=== PATIENT | female | born 1950 | race Caucasian/White ===

== ENCOUNTER → 2018-07-25 | Day surgery (SDC) | payer MEDICARE, BC ==
[2018-07-24 10:29] LABS: BASOPHILS # (AUTO) 0.1 (0.0-0.1); BASOPHILS % 1.1 % (0.0-1.0); EOSINOPHILS # (AUTO) 0.3 (0.0-0.4); HEMOGLOBIN 11.5 g/dL (12.0-16.0); LYMPHOCYTES # (AUTO) 1.4 (1.0-3.2); LYMPHOCYTES % 20.2 % (18.0-39.1); MEAN CORPUSCULAR HEMOGLOBIN 23.5 pg (28-32); MEAN CORPUSCULAR HGB CONC 30.3 g/dL (31-35); MEAN CORPUSCULAR VOLUME 77.6 fL (81-99); MONOCYTES # (AUTO) 0.5 (0.2-0.8); MONOCYTES % 7.4 % (4.4-11.3); NEUTROPHILS # (AUTO) 4.6 (2.1-6.9); NEUTROPHILS % 66.2 % (38.7-80.0); PLATELET COUNT 52 x10e3/uL (140-360); RED CELL DISTRIBUTION WIDTH 14.6 % (11.7-14.4)
[2018-07-24 10:42] LABS: ALBUMIN 3.4 g/dL (3.5-5.0); ANION GAP 12.2 mmol/L (8-16); CALCIUM 9.6 mg/dL (8.4-10.2); CREATININE, SERUM 1.23 mg/dL (0.57-1.11)
[2018-07-24 10:44] LABS: POTASSIUM 5.2 mmol/L (3.5-5.1)
[2018-07-24 10:52] LABS: INR 0.92; PROTHROMBIN TIME 12.9 seconds (11.9-14.5)
[2018-07-24 12:18] LABS: PLATELET ESTIMATE MARKEDLY DECREASED; PLATELET MORPHOLOGY COMMENT MANY LARGE; RBC MORPHOLOGY COMMENT NORMAL
[~2018-07-25] VITALS: Ht 177.8 cm; Wt 104.3 kg
[2018-07-25] VITALS (10 sets, daily range): BP systolic 117–157; BP diastolic 57–87
[~2018-07-25] MED LIST: AMLODIPINE BESYL5 MG PO; ASPIRIN 325 MG TAB ONE; EPTIFIBATIDE 10 ML ONE; FENTANYL CITRATE/PF 100MCG/2 ML INJ ONE; FOSINOPRIL SODI20 M1 PO; GLIMEPIRIDE2 MG PO; HEPARIN SOD/SOD CHLORIDE 2,000 ML ONE; HUMULIN SC; IOPAMIDOL 300MG/ML 100 ML INFUS..BTL IV ONE; IOPAMIDOL 370 MG/ML 200 ML INFUS..BTL INJ ONE; LIDOCAINE HCL 2% LOCAL 20 ML VIAL ONE; METOPROLOL SUCC25 MG PO; MIDAZOLAM HCL 2 MG/2 ML VIAL ONE; PANTOPRAZOLE SO40 MG PO; RANITIDINE HCL300 MG PO; SODIUM CHLORIDE 0.9% 1000ML 1,000 ML ONE; TICAGRELOR 90 MG TABLET ONE; VERAPAMIL HCL 2.5 MG/ML 2 ML VIAL ONE; XARELTO20 MG PO; Z DILTIAZEM PO; Z.0.GLIPIZIDE10 MG PO; Z.0.LEVEMIR 3M100 UN SQ; Z.1.DOXAZOSIN MESYLA PO; Z.1.HUMALOG100 UNIT/ SQ; Z.2.METFORMIN HCL500 PO
--- OUTSIDE RECORDS SUMMARY | 2018-07-25 11:51 | XMS REPORT ---
Author Author [facility] Address Unknown Phone Unavailable Care Team Providers Care [employer] Name Role Phone Unavailable Unavailable Payers Payer Name Policy Type Policy Number Effective Date Expiration Date Problems This patient has no known problems. Allergies, Adverse Reactions, Alerts Allergy Name Allergy Type Status Severity Reaction(s) Onset Date Inactive Date Treating Clinician Comments HYDROCODONE DA Active U 2008-08-22 00:00:00 LEVAQUIN DA Active U 2008-08-22 00:00:00 No Known Contrast Allergies DA Active U 2008-08-22 00:00:00 No Known Food Allergies DA Active U 2008-08-22 00:00:00 No Known Other Allergies DA Active U 2008-08-22 00:00:00 propoxyphene DA Active U 2008-06-20 00:00:00 levofloxacin DA Active U 2008-06-20 00:00:00 Medications This patient has no known medications.
--- NOTE | 2018-07-25 15:07 | NUR ---
1507 Received pt Rm #9 [facility] Lad fix x2 stents. Dr Bah Identifierx2.Back to baseline Orientation.Resp shallow and regular 97% on room air Abdomen soft and non tender. Denies necessity to defecate or urinate. Offered po intake and tolerated well. TR band approach may titrate at 5pm and dc home at 7pm. Site w/o gross signs pain,pallor,pressure or three phases of interphase including what is happening at each phase.dysrhythmia.Abdomen soft and non tenders denies necessity to defecate or urinate. 1700 TR band initiated -2cc balance 13cc in balloon balance remains 11cc no signs of hematoma or bleeding. 1715 TR band -2cc balance 11cc 1730 TR band -2cc balance 8cc 1745 Trband -2cc balance 6cc 1800 TR band -2cc balance 4cc 1815 TR band off no gross signs pain,pallor,pressure or dysrhythmia. Coban dressing in place with wrist splint.Ready for dc. Has DC papers and family and pt aware of importance of f/o care. Iv removed . Site w/o s/s infiltration coban dressing in place.Escorted to car aware of importance f/o care per w/c with [employer] employee.
--- NOTE | 2018-07-25 16:09 | Operative Report ---
DATE OF PROCEDURE: 07/25/2018 SURGEON: Cecilio Bah MD CARDIAC QUANTITATIVE ANALYST PROCEDURE NOTE INDICATION: Coronary artery disease, abnormal stress test with lateral ischemia. PROCEDURES PERFORMED: 1. Left heart catheterization, selective coronary angiography. 2. PTCA and stent placement to the circumflex artery. 3. Deployment of right wrist TR band. COMPLICATIONS: None. RECOMMENDATIONS: Triple anticoagulant therapy for three months, followed by aspirin and Xarelto for life. DESCRIPTION OF PROCEDURE: Access obtained in the right radial artery using ultrasound guidance, 5-Kyrgyz sheath was placed. Diagnostic coronary angiogram revealed patent left main, mild disease in the proximal left and proximal and mid left anterior descending artery. Distal LAD had diffuse 50% to 70% stenosis. This was 1.5 mm vessel. Circumflex was calcified with proximal 90% and mid 70% stenosis. Right coronary artery had mild disease. Right posterolateral and posterior descending arteries had diffuse 50% stenosis. A decision was made to intervene on the circumflex arteries. The patient received intravenous heparin and Integrilin bolus for anticoagulation as well as oral Brilinta and aspirin. The left main was cannulated using an EBU 3.75 5-Kyrgyz guiding catheter. A short wire was advanced across the lesion. Two overlapping 2.75 x 18 mm Resolute Tyson stents were deployed at 14 and 20 atmospheres, mid and proximal circumflex. Excellent result less than 10% residual stenosis, MARIELA-3 flow. No complication. Right wrist sheath and guide removed. TR band applied. The patient discharged home same day following 6 hours of observation. MD VINCE Santiago/MODL /[id number]
--- NOTE | 2018-07-25 18:00 | NUR ---
1800 Dc home no gross sign pain,pallor,pressure or dysrhythmia. Escorted to car per [employer] [facility] employee with family driverper w/c. Aware of importance of f/o and restrictions of care. Denies c/o CP or SOB Tr band site stable. Vs stable. ds/rn
== END | disposition home or self-care (01) ==
LOC: CATH LAB 11:43
PROVIDERS: ATTEND Internal Medicine Interventional Cardiology
DX: I25.118 Atherosclerotic heart disease of native coronary artery with other forms of angina pectoris (principal); I48.0 Paroxysmal atrial fibrillation; I10 Essential (primary) hypertension; R94.39 Abnormal result of other cardiovascular function study; E11.9 Type 2 diabetes mellitus without complications; Z01.812 Encounter for preprocedural laboratory examination; Z79.4 Long term (current) use of insulin; Z79.02 Long term (current) use of antithrombotics/antiplatelets; Z68.32 Body mass index [BMI] 32.0-32.9, adult; Z86.19 Personal history of other infectious and parasitic diseases; Z82.49 Family history of ischemic heart disease and other diseases of the circulatory system
CPT/HCPCS: 93458; C1874; C9600; 36415; 80053; 85025; 85610; 92933; J1327; J2001; J2250; J7030; Q9967

== ENCOUNTER 2018-08-19 15:12 | Inpatient (IN) | payer MEDICARE, BC ==
[~2018-08-19] VITALS: Ht 177.8 cm; Wt 104.3 kg
[~2018-08-19 15:12] MED LIST changes: -ASPIRIN 325 MG TAB ONE; -EPTIFIBATIDE 10 ML ONE; -FENTANYL CITRATE/PF 100MCG/2 ML INJ ONE; -HEPARIN SOD/SOD CHLORIDE 2,000 ML ONE; -IOPAMIDOL 300MG/ML 100 ML INFUS..BTL IV ONE; -IOPAMIDOL 370 MG/ML 200 ML INFUS..BTL INJ ONE; -LIDOCAINE HCL 2% LOCAL 20 ML VIAL ONE; -MIDAZOLAM HCL 2 MG/2 ML VIAL ONE; -SODIUM CHLORIDE 0.9% 1000ML 1,000 ML ONE; -TICAGRELOR 90 MG TABLET ONE; -VERAPAMIL HCL 2.5 MG/ML 2 ML VIAL ONE
[2018-08-19 16:02] LABS: BASOPHILS # (AUTO) 0.1 (0.0-0.1); BASOPHILS % 0.8 % (0.0-1.0); EOSINOPHILS # (AUTO) 0.2 (0.0-0.4); EOSINOPHILS % 3.1 % (0.0-6.0); HEMATOCRIT 33.4 % (34.2-44.1); HEMOGLOBIN 10.2 g/dL (12.0-16.0); LYMPHOCYTES # (AUTO) 1.4 (1.0-3.2); LYMPHOCYTES % 19.8 % (18.0-39.1); MEAN CORPUSCULAR HEMOGLOBIN 23.1 pg (28-32); MEAN CORPUSCULAR HGB CONC 30.5 g/dL (31-35); MEAN CORPUSCULAR VOLUME 75.7 fL (81-99); MONOCYTES # (AUTO) 0.5 (0.2-0.8); MONOCYTES % 7.1 % (4.4-11.3); NEUTROPHILS # (AUTO) 4.9 (2.1-6.9); NEUTROPHILS % 68.2 % (38.7-80.0); RED BLOOD COUNT 4.41 x10e6/uL (3.6-5.1); RED CELL DISTRIBUTION WIDTH 14.5 % (11.7-14.4)
[2018-08-19 16:04] LABS: PLATELET COUNT 48 x10e3/uL (140-360)
[2018-08-19 16:07] LABS: BILIRUBIN,URINE NEGATIVE (NEGATIVE); CLARITY,URINE HAZY (CLEAR); COLOR,URINE YELLOW (YELLOW); KETONES,URINE NEGATIVE (NEGATIVE); LEUKOCYTE ESTERASE ,URINE NEGATIVE (NEGATIVE); NITRITE,URINE NEGATIVE (NEGATIVE); PROTEIN,URINE DIPSTICK NEGATIVE (NEGATIVE); URINE UROBILINOGEN 0.2 mg/dL (0.2 - 1)
--- NOTE | 2018-08-19 16:11 | Diagnostic Imaging Report ---
EXAMINATION: CHEST SINGLE (PORTABLE) INDICATION: ^DIZZY COMPARISON: None FINDINGS: AP view TUBES and LINES: None. LUNGS: Lungs are well inflated. Lungs are clear. There is no evidence of pneumonia or pulmonary edema. PLEURA: No pleural effusion or pneumothorax. HEART AND MEDIASTINUM: The cardiomediastinal silhouette is unremarkable. Mildly prominent right hilar structures. BONES AND SOFT TISSUES: No acute osseous lesion. Soft tissues are unremarkable. UPPER ABDOMEN: No free air under the diaphragm. IMPRESSION: Mildly prominent right hilar structure, which may represent lymphadenopathy versus pulmonary arterial hypertension. Signed by: Dr. Kelby Colunga M.D. on 08/19/2018 4:07 PM
[2018-08-19 16:12] LABS: BACTERIA,URINE FEW /HPF; EPITHELIAL CELLS,URINE FEW /LPF; RBC,URINE 0-5 /HPF (0-5); WBC,URINE (MAN) 0-5 /HPF (0-5)
--- NOTE | 2018-08-19 16:13 | Diagnostic Imaging Report ---
History:Slurred speech, on Plavix Comparison studies: None Technique: Axial images were obtained from the skull base to the vertex. Coronal and sagittal images reconstructed from the axial data. Dose modulation, iterative reconstruction, and/or weight based adjustment of the mA/kV was utilized to reduce the radiation dose to as low as reasonably achievable. Intravenous contrast: None Findings: Scalp/skull: No abnormalities. Extra-axial spaces: No masses. No fluid collections. Brain sulci: Mildly prominent. Ventricles: Mild compensatory dilatation. No hydrocephalus. Parenchyma: Ill-defined, confluent hypodensities in the supratentorial white matter are small vessel ischemic changes. No masses, hemorrhage, acute or chronic cortical vascular insults. 2 5-mm chronic lacunar insults are centered in the posterior putamina and right thalamus. Sellar/suprasellar region: No abnormalities. Craniocervical junction: Patent foramen magnum. No Chiari one malformation. Incidental findings: Atherosclerotic calcifications in the carotid siphons and vertebral arteries.. Impression: No acute abnormalities. Chronic findings: 1. Mild generalized volume loss. 2. Moderate supratentorial white matter small vessel ischemic changes. 3. Focal lacunar insults (putamina and right thalamus) Signed by: Dr. Zeferino Richmond M.D. on 08/19/2018 4:10 PM
[2018-08-19 16:16] LABS: INR 1.02; PROTHROMBIN TIME 13.9 seconds (11.9-14.5)
[2018-08-19 16:17] LABS: PARTIAL THROMBOPLASTIN TIME 30.4 seconds (23.8-35.5)
[2018-08-19 16:27] LABS: ALANINE AMINOTRANSFERASE 20 IU/L (0-55); ALBUMIN 3.7 g/dL (3.5-5.0); ALBUMIN/GLOBULIN RATIO 1.1 (0.8-2.0); ALKALINE PHOSPHATASE 41 IU/L (40-150); ANION GAP 14.1 mmol/L (8-16); BLOOD UREA NITROGEN 20 mg/dL (7-26); BUN/CREATININE RATIO 16 (6-25); CALCIUM 9.6 mg/dL (8.4-10.2); CARBON DIOXIDE 26 mmol/L (22-29); CHLORIDE 106 mmol/L (98-107); CREATINE KINASE 167 IU/L (29-168); CREATININE, SERUM 1.24 mg/dL (0.57-1.11); EST GLOMERULAR FILTRATION RATE 43 ML/MIN (60-); GLUCOSE 87 mg/dL (74-118); MAGNESIUM 1.3 MG/DL (1.3-2.1); PLATELET ESTIMATE MARKEDLY DECREASED; PLATELET MORPHOLOGY COMMENT NORMAL; POTASSIUM 4.1 mmol/L (3.5-5.1); SODIUM 142 mmol/L (136-145)
[2018-08-19] MEDS ORDERED: ONDANSETRON HCL INJ 2MG/ML 2ML 2 MG/ML VIAL IV PRN (18:15)
[2018-08-19] MEDS ORDERED: DEXTROSE 50% SYRINGE 50 ML IV PRN (18:15)
[2018-08-19] MEDS: SODIUM CHLORIDE 0.9% 1000ML 1,000 ML IV SCH (18:40)
[2018-08-19] MEDS: INSULIN LISPRO 100 UNIT/1 ML 3ML VIAL SQ SCH (21:00)
[2018-08-19 21:15] VITALS: BP 177/118
--- NOTE | 2018-08-19 21:20 | NUR ---
RECEIVED PATIENT FROM ER IN STABLE CONDITION, SHOWED NO SIGNS OF DISTRESS, AND THE PATIENT VOICED NO PAIN. IV PATENT AND INTACT, BED IS LOW, SIDE RAILS ARE UP, CALL LIGHT WITHIN EASY REACH, WILL CONTINUE TO MONITOR.
[2018-08-19] MEDS ORDERED: HUMULIN SC SCH (23:00)
[2018-08-20] VITALS (8 sets, daily range): BP systolic 147–196; BP diastolic 67–77
[2018-08-20 04:03] LABS: BASOPHILS # (AUTO) 0.1 (0.0-0.1); BASOPHILS % 0.9 % (0.0-1.0); EOSINOPHILS # (AUTO) 0.2 (0.0-0.4); EOSINOPHILS % 3.4 % (0.0-6.0); HEMATOCRIT 29.4 % (34.2-44.1); HEMOGLOBIN 9.2 g/dL (12.0-16.0); LYMPHOCYTES # (AUTO) 1.4 (1.0-3.2); LYMPHOCYTES % 21.9 % (18.0-39.1); MEAN CORPUSCULAR HEMOGLOBIN 23.5 pg (28-32); MEAN CORPUSCULAR HGB CONC 31.3 g/dL (31-35); MONOCYTES # (AUTO) 0.5 (0.2-0.8); MONOCYTES % 7.4 % (4.4-11.3); NEUTROPHILS # (AUTO) 4.2 (2.1-6.9); NEUTROPHILS % 65.8 % (38.7-80.0); RED BLOOD COUNT 3.92 x10e6/uL (3.6-5.1); RED CELL DISTRIBUTION WIDTH 14.5 % (11.7-14.4)
[2018-08-20 04:07] LABS: PLATELET COUNT 37 x10e3/uL (140-360)
[2018-08-20 04:24] LABS: ALBUMIN 3.2 g/dL (3.5-5.0); ALBUMIN/GLOBULIN RATIO 1.1 (0.8-2.0); ANION GAP 11.2 mmol/L (8-16); CALCIUM 9.9 mg/dL (8.4-10.2); CREATININE, SERUM 1.05 mg/dL (0.57-1.11); POTASSIUM 4.2 mmol/L (3.5-5.1)
--- NOTE | 2018-08-20 04:24 | NUR ---
PAGED DR. BHARDWAJ ON CRITICAL LABS FOR PATIENT, WAITING FOR CALL BACK.
--- NOTE | 2018-08-20 04:31 | NUR ---
RECEIVED CALL BACK FROM DR. BHARDWAJ TO STOP BLOOD THINNER. WILL CONTINUE TO MONITOR PATIENT.
[2018-08-20] MEDS: SODIUM CHLORIDE 0.9% 1000ML 1,000 ML IV SCH ×2 (05:00→13:45)
[2018-08-20 06:39] LABS: CREATINE KINASE MB 3.2 ng/mL (0-5.0)
[2018-08-20] MEDS ORDERED: GLIMEPIRIDE 2 MG TAB PO SCH (07:30)
[2018-08-20] MEDS ORDERED: METFORMIN HCL 500 MG TAB PO SCH (08:00)
[2018-08-20] MEDS: AMLODIPINE BESYLATE 5 MG TAB PO SCH (08:09)
[2018-08-20] MEDS: PANTOPRAZOLE SOD 40 MG TABEC PO SCH (08:09)
[2018-08-20] MEDS: METOPROLOL SUCCINATE 25 MG TAB XL PO SCH (08:10)
[2018-08-20] MEDS: INSULIN LISPRO 100 UNIT/1 ML 3ML VIAL SQ SCH ×4 (08:10→21:14)
[2018-08-20] MEDS ORDERED: ONDANSETRON HCL INJ 2MG/ML 2ML 2 MG/ML VIAL IV PRN (08:15)
[2018-08-20] MEDS ORDERED: ALTACHLORE OS (08:18)
[2018-08-20] MEDS ORDERED: SIMBRINZA OS (08:18)
[2018-08-20] MEDS ORDERED: [UNRECOGNIZED DRUG - OTHER] OS (08:18)
[2018-08-20] MEDS ORDERED: LOTEMAX5 ML OS (08:18)
[2018-08-20 08:36] LABS: CHOL/HDL RATIO 2.5 (3.0-3.6)
[2018-08-20 08:39] LABS: % IRON SATURATION 3 % (15-50); IRON 13 ug/dL (50-170); TOTAL IRON BINDING CAPACITY 458 ug/dL (261-478); TRANSFERRIN 327 mg/dL (180-382)
[2018-08-20] MEDS: SODIUM CHLORIDE OP SCH ×3 (09:00→20:46)
[2018-08-20] MEDS: SIMBRINZA EYE OP SCH ×2 (09:00→17:00)
[2018-08-20] MEDS: EYE OP SCH (09:00)
[2018-08-20] MEDS: LOTEPREDNOL ETABONATE(OPTH) 5 ML BTL OP SCH ×2 (09:00→17:00)
[2018-08-20] MEDS ORDERED: RIVAROXABAN 20 MG TABLET PO SCH (09:00)
[2018-08-20] MEDS ORDERED: CLOPIDOGREL BISULFATE 75 MG TAB PO SCH (09:00)
[2018-08-20 12:57] LABS: CREATINE KINASE 171 IU/L (29-168)
[2018-08-20] MEDS ORDERED: SODIUM CHLORIDE 0.9% 250ML 250 ML IV ONE ×2 (13:30→16:00)
[2018-08-20] MEDS ORDERED: ONDANSETRON HCL 4 MG ORAL DISINTEGRATING TAB PO PRN (13:45)
--- NOTE | 2018-08-20 15:47 | History and Physical ---
REASON FOR ADMISSION: This is a 68-year-old lady with a history of diabetes mellitus, comes in with symptoms of slurry speech and also dizziness. HISTORY OF PRESENT ILLNESS: Ms. Pro is a 68-year-old, charming lady with a history of diabetes mellitus, hypertension, hyperlipidemia, history of recent cataract surgery, and history of recent stent for coronary artery disease, was in usual state of health until the patient came back from work on Tuesday night, noticed that she was slurring her speech and could not understand her words. The patient also had a tremendous amount of dizziness at that time, did not make much of it the next to the patient. Yesterday, the patient continued to have these symptoms of slurred speech and dizziness and came into the emergency room, was admitted for possible TIA. Stroke has been ruled out. PAST MEDICAL HISTORY: History of hypertension, history of hyperlipidemia, history of coronary artery disease, history of atrial fibrillation, history of long-term use of insulin, history of long-term use of anticoagulant too, and recent history of stent. 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 PAST SURGICAL HISTORY: History of recent cataract surgery, history of stent placement, and history of cholecystectomy and knee replacement. MEDICATIONS: She takes include amlodipine 5 mg daily, glimepiride 4 mg twice a day, insulin 48 units at nighttime. Metformin 1000 mg twice a day, metoprolol 25 mg daily, pantoprazole 40 mg daily, ranitidine 300 mg at nighttime, and also Xarelto 20 mg daily. She also takes Plavix 75 mg daily, and Humulin 10 units subcutaneous before each meal. REVIEW OF SYSTEMS: Negative for chest pain. No shortness of breath. No nausea, vomiting, or diarrhea. No constipation. No rectal bleeding. No hematochezia. No hematemesis. No paresthesias, no hyperesthesias. No focal weakness. Positive for right-sided facial weakness from Mosher's palsy. The patient otherwise has no diplopia. No headache and no blurry vision. Positive for slurring of speech as mentioned above. PHYSICAL EXAMINATION: VITAL SIGNS: Temperature is 96.1, pulse of 66, respirations of 18, blood pressure is 196/77. HEENT: Normocephalic atraumatic. Chronic facial droop present. CVS: S1, S2 normal. Positive for ejection systolic murmur. Regular rate and rhythm. ABDOMEN: Nontender, nondistended. EXTREMITIES: No clubbing, no cyanosis and/or no edema. NEUROLOGICAL: No focal neurological changes except for the chronic Mosher's palsy right side. LABORATORY VALUES: The patient's white count is 6.38, hemoglobin of 9.2, hematocrit of 29.4, and platelet count of 48 and down to 37. Chemistry, sodium of 142, potassium 4.1, BUN of 20, creatinine of 1.24, and troponins have been negative x2. Coags are essentially normal. IMAGING STUDIES: Initial brain CT was done, shows mild generalized volume loss. Moderate supratentorial white matter ischemic changes. Focal lacunar insults seen in the right thalamus. ASSESSMENT: 1. Transient ischemic attack/cerebrovascular accident .. 2. History of recent angioplasty with history of coronary artery disease. 3. Diabetes mellitus. 4. Hyperlipidemia. 5. Hypertension. PLAN: 1. Plan is to consult Neurology. The patient cannot undergo MRI secondary to the recent angioplasty. Need six weeks of waiting. 2. Thrombocytopenia. The patient continues to drop her platelets in lieu of three antiplatelets on board. 3. Coronary artery disease. We will consult Dr. Jaramillo. 4. History of diabetes mellitus. Stronger control of diabetes recommended and A1c will be checked and a lipid panel will be checked too. Further recommendation per clinical course. We will keep the patient in-house. Carotid Doppler will be done. Complete echocardiogram repeated and also a Neurology consult as mentioned above. MD IMTIAZ Sevilla/MODL /[id number]
--- NOTE | 2018-08-20 16:33 | Consultation ---
DATE OF CONSULTATION: Cardiology Consultation HISTORY OF PRESENT ILLNESS: This is a 68-year-old woman with a history of paroxysmal atrial fibrillation, coronary artery disease status post recent percutaneous coronary intervention on July 25, and thrombocytopenia, who presented to the emergency department with worsening slurring of her speech, fatigue, dizziness, and lightheadedness. The symptoms started a day prior to admission. It became more severe leading her son to take her to the emergency department. She has no chest pain, shortness of breath, or palpitations. She is currently still taking her Plavix, aspirin, and Xarelto. Her symptoms have been improving throughout her stay. REVIEW OF SYSTEMS: A 12-point review of system was conducted, is negative, otherwise as stated above in the HPI. 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 PAST SURGICAL HISTORY: Percutaneous coronary intervention. PAST FAMILY HISTORY: No premature coronary artery disease or sudden cardiac . SOCIAL HISTORY: No illicit drugs, alcohol, or tobacco use. ALLERGIES: HYDROCODONE, LEVOFLOXACIN. MEDICATIONS: See medication reconciliation form. PHYSICAL EXAMINATION: VITAL SIGNS: She is afebrile, heart rate is 56, respirations are 18, blood pressure is 171/74, and oxygen saturation 98% on room air. GENERAL: Well appearing, well built, in no apparent distress, alert and oriented x3. HEAD: Normocephalic, atraumatic. EYES: Extraocular movements are intact. Conjunctiva is clear. NECK: No JVD. No bruits. CARDIOVASCULAR: Regular rate and rhythm. No murmurs. LUNGS: Clear to auscultation. ABDOMEN: Soft, nontender, nondistended. EXTREMITIES: No clubbing or cyanosis with trace edema. VASCULAR: 2+ pulses. NEUROLOGIC: Dysarthria. LABORATORY DATA: A 12-lead electrocardiogram showed normal sinus rhythm. Laboratory data reveals platelet count of 37, creatinine 1.05, negative troponins. CT of the head shows focal lacunar insults. Carotid Doppler showed mild plaque in the internal carotid arteries with increased velocities in the left external carotid artery. IMPRESSION: 1. Cerebrovascular accident. 2. Paroxysmal atrial fibrillation. 3. Coronary artery disease status post recent percutaneous coronary intervention. 4. Hypertension. 5. Hyperlipidemia. 6. Diabetes mellitus. 7. Thrombocytopenia. RECOMMENDATIONS: The patient likely with a subacute stroke. Continue clopidogrel given recent stent, however, use caution with her significant thrombocytopenia. I would increase her atorvastatin to at least moderate to high dosage for ongoing cardiovascular medical problems. Restart her home medications for antihypertensive effect. We will continue to follow along closely with you. DO PAT Shaw/KRIS /[id number]
[2018-08-20] MEDS ORDERED: SODIUM CHLORIDE 0.9% 100 ML 100 ML ONE (17:36)
[2018-08-20] MEDS ORDERED: IOPAMIDOL 370 MG/ML 200 ML INFUS..BTL INJ ONE (17:36)
--- NOTE | 2018-08-20 18:52 | Diagnostic Imaging Report ---
CTA NECK, CTA BRAIN HISTORY: Dizziness, dysarthria COMPARISON: Head CT 08/19/2018 TECHNIQUE: CTA of the head and neck was performed with intravenous iodine based contrast. Coronal, sagittal, 3-D, and oblique maximum intensity projection reformations were created. One or more of the following dose reduction techniques were used: Automated exposure control, adjustment of the mA and/or kV according to patient size, and/or utilization of iterative reconstruction technique. DISCUSSION: If present, any cervical carotid stenosis will be measured as a percentage relative to the [place] artery distal to the stenosis (NASCET). CERVICAL CTA: Aberrant right subclavian artery is present, a normal variant. There are mild calcifications in the aortic arch and proximal great vessels without significant stenosis. Right Carotid: Mild to moderate calcified plaque at the right carotid bulb does not cause significant stenosis. Mild calcified plaque in the upper right cervical internal carotid artery also does not cause significant stenosis. The right internal carotid artery has a retropharyngeal course. Left Carotid: Moderate left carotid bulb calcified plaque does not cause significant stenosis. The upper left cervical internal carotid artery is tortuous. Right vertebral artery: Hypoplastic, but otherwise patent and without abnormality. Left vertebral artery: A few scattered mild calcified plaques in the V1, V2, and V3 segments do not cause significant stenosis. Otherwise, patent and without abnormality. INTRACRANIAL CTA: Carotid arteries: Bilateral carotid siphon calcifications are present without significant stenosis. No abnormalities in the A1 or M1 segments. Suspected, at least moderate focal stenoses in the bilateral anterior cerebral artery A2 segments. Vertebrobasilar Circulation: Right vertebral artery: The right vertebral artery is hypoplastic. Mild calcified plaque in the V4 segment does not cause significant stenosis. Left vertebral artery: Mild calcified plaque in the V4 segment does not cause significant stenosis. Basilar artery: Patent, no abnormalities. Posterior cerebral arteries: Patent, no abnormalities. Normal Variants: ACom: Patent. PComs: Patent on the left. Not clearly visualized on the right. Vertebral arteries: Left dominant. The major dural venous sinuses are grossly patent. Additional findings: Both ocular lenses are thinned. There are mild to moderate degenerative changes throughout the spine. IMPRESSION: 1. Suspected, at least moderate focal stenoses in the bilateral anterior cerebral artery A2 segments. 2. Bilateral carotid siphon calcifications without significant stenosis. 3. Mild to moderate right and moderate left carotid bulb calcified plaque without significant stenosis. 4. Scattered mild bilateral vertebral artery calcified plaques without significant stenosis. The right vertebral artery is hypoplastic. Signed by: Dr. Domingo Jefferson M.D. on 08/20/2018 6:49 PM
--- NOTE | 2018-08-20 18:59 | Consultation ---
DATE OF CONSULTATION: 08/20/2018 Neurology Consult Note HISTORY OF PRESENT ILLNESS: Ms. Pro is a 68-year-old right-hand dominant woman with multiple vascular risk factors, admitted to [facility] on August 19, 2018 for a transient ischemic attack or stroke. At approximately noon on the day prior to admission, Ms. Pro experienced the sudden onset of dizziness, which is further described as lightheadedness as well as dysarthria and expressive aphasia. Ms. Pro endorses poor balance and impairment of gait as well, however, she attributes this to the dizziness. The patient does not report a visual field cut or other disturbance, worsening facial droop, hemiparesis, hemihypesthesia, or confusion associated with the above symptoms. The above described symptoms persisted for more than 24 hours. On the afternoon of August 19, 2018, Ms. Pro was persuaded by family members to present to the emergency center at [facility] for further evaluation. Upon arrival in the emergency center, the patient was afebrile with a blood pressure of 199/80 mmHg and a pulse of 65 beats per minute. Her neurological examination was documented as being significant for dysarthria as well as right facial weakness. A CT of the brain without contrast was performed. This study did not reveal evidence of recent large territorial ischemia or hemorrhage. Focal lacunar insults were seen in the bilateral putamen and right thalamus. Ms. Pro was then admitted to [facility] under observation status for further evaluation and treatment of her symptoms. Ms. Pro reports her symptoms resolved while she is in the emergency center. While the symptoms did last for more than 24 hours, she reports being asymptomatic at present. Ms. Pro does not report a prior history of transient ischemic attack or stroke. She has not experienced similar symptoms previously. Ms. Pro takes Xarelto daily for anticoagulation for atrial fibrillation. She does not report missing any recent doses of the medication. Ms. Pro is taking aspirin and Plavix by mouth daily due to recent cardiac stent placement. REVIEW OF SYSTEMS: Dysarthria, expressive aphasia, impairment of balance and gait, dizziness which is further described as lightheadedness. Otherwise, a 12-point review of systems is negative. PAST MEDICAL HISTORY: Hypertension, diabetes mellitus, coronary artery disease, atrial fibrillation, chronic kidney disease stage 1, gastroesophageal reflux disease. PAST SURGICAL HISTORY: Bilateral cataract removal, cardiac catheterization with 2 stents placed, tonsillectomy, cholecystectomy, right knee replacement. PAST HOSPITALIZATIONS: Surgeries/procedures as listed. FAMILY MEDICAL HISTORY: The patient's paternal and maternal grandparents are . Their medical histories are unknown. The patient's father is . He had a history of hypertension as well as an irregular heart rate. The patient's mother is from complications of Alzheimer disease. She had hypertension as well. Ms. Pro had 1 sibling, a brother, who is . His only known medical history was hypertension. Ms. Pro had one child, a daughter, who is from complications of diabetes mellitus type 1. SOCIAL HISTORY: Ms. Pro is . She works as a [place] at a [employer]. The patient does not report current or prior tobacco or recreational drug use. She endorses occasional alcohol use. HOME MEDICATIONS: Aspirin 81 mg by mouth daily, Plavix 75 mg by mouth daily, Xarelto 20 mg by mouth daily, amlodipine 5 mg by mouth daily, metoprolol 25 mg by mouth daily, atorvastatin 10 mg by mouth daily, glimepiride 4 mg by mouth twice daily, insulin detemir 48 units subcutaneously at bedtime daily, metformin 1000 mg by mouth twice daily, Protonix 40 mg by mouth daily, ranitidine 300 mg by mouth at bedtime daily, Humulin, Simbrinza. HOSPITAL MEDICATIONS: Norvasc, Lipitor, Catapres, Plavix, Pepcid, Lantus, Humalog, Lotemax, Toprol, Simbrinza, Zofran, Protonix. ALLERGIES: HYDROCODONE, LEVOFLOXACIN. NO KNOWN FOOD ALLERGIES. MILD LATEX ALLERGY. NO KNOWN ALLERGY TO IODINE OR OTHER CONTRAST MATERIALS. PHYSICAL EXAMINATION: VITAL SIGNS: Height 70 inches, weight 230 pounds, BMI 33.0 kg/m2, blood pressure 171/74 mmHg, pulse 56 beats per minute, respiratory rate 18 breaths per minute, and oxygen saturation 98% on room air. GENERAL: The patient is awake and alert, does not appear distressed. Obese. HEENT: Normocephalic, atraumatic. Pupils are surgical. Moist mucous membranes. NECK: Supple. No appreciable thyromegaly. No appreciable carotid bruits. CARDIOVASCULAR: S1, S2, bradycardic, regular rhythm. No murmurs, rubs, or gallops. RESPIRATORY: Clear to auscultation bilaterally. No wheezes, rhonchi, or rales. EXTREMITIES: The skin is warm and dry. No clubbing, cyanosis, or edema. The posterior tibial and dorsalis pedis pulses are 1+ and symmetric. SKIN: No rashes or lesions. NEUROLOGIC: Memory/Attention: The patient is awake and alert, oriented to person, place, time, and situation. Cranial Nerves: Cranial nerve I - not tested. Cranial nerve II, III, IV, and - pupils are surgical. Extraocular movements intact. No nystagmus. Cranial nerve V - sensation to light touch and pinprick is intact in the bilateral V1 through V3 distributions. Strength in the temporalis and masseter muscles are within normal limits. Cranial nerve VII - the face is asymmetric on the right as her all facial movements. 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 Cranial nerve VIII - hearing is intact to finger rub bilaterally. Cranial nerve XI, X - the soft palate elevates equally and symmetrically. Cranial nerve XI - normal strength of the bilateral sternocleidomastoid and trapezius muscles. Cranial nerve XII - the tongue protrudes midline and moves symmetrically from [id number]-vv-zqet. Strength: Bulk is normal. Strength is 5/5 in the bilateral deltoids, biceps, triceps, wrist flexors and extensors, finger flexors and extensors, intrinsic hand muscles, hip flexors, knee flexors and extensors, ankle dorsiflexion and plantar flexion, and intrinsic foot muscles. Tone is normal. DTRs: Deep tendon reflexes are 1+ and symmetric at the triceps and biceps. Deep tendon reflexes are trace and symmetric at the brachioradialis and patellas. Deep tendon reflexes are absent and symmetric at the Achilles. Plantar responses are flexor bilaterally. Sensation: Sensation is intact to light touch and pinprick in both arms and both legs except as follows: Decreased sensation to light touch over the right foreleg. Cerebellar: Tdvdog-lbfd-ydbycc and heel-blanco movements are intact without dysmetria or other impairment. Gait: Deferred. Speech: Spontaneous speech is normal without appreciable dysarthria or aphasia. Repetition is intact. Involuntary movements: None. Pronator Drift: Mild on the right. LABORATORY DATA: The most recent comprehensive metabolic panel is significant for an estimated GFR of 52, serum glucose of 143, total protein of 6.0, and albumin of 3.2. Hemoglobin A1c 7.1. Cardiac enzymes are negative x3. Iron 13, TIBC 458, percent saturation 3, transferrin 327. Total cholesterol 115, triglycerides 141, LDL cholesterol 41, HDL cholesterol 46. The CBC with differential and platelets reveals a white blood cell count of 6.38 with a normal differential. The hemoglobin and hematocrit are 9.2 and 29.4. The platelet count is 37. A coagulation profile is within normal limits. A urinalysis was unremarkable. A urine culture is pending. DIAGNOSTIC STUDIES: Electrocardiogram, 08/19/2018: Normal sinus rhythm at 60 beats per minute with sinus arrhythmia. Possible left ventricular hypertrophy. Chest x-ray, 08/19/2018: Mildly prominent right hilar structure, which may represent lymphadenopathy versus pulmonary arterial hypertension. CT of the brain without contrast, 08/19/2018: On my review, there is no evidence of recent large territorial ischemia, hemorrhage, mass, or mass effect. Chronic lacunar infarcts are seen in the bilateral putamen as well as the right thalamus. There is mild diffuse cerebral atrophy with compensatory dilatation of the ventricles. There are findings compatible with moderate chronic small vessel ischemic disease. Echocardiogram, 08/20/2018: Ejection fraction 50% to 55%. Left atrial enlargement. Trace tricuspid regurgitation. Trace to mild mitral regurgitation. Bilateral carotid artery ultrasound with Doppler, 08/20/2018: There is atherosclerosis without hemodynamically significant stenosis at the bilateral carotid bulbs, carotid bifurcations, and internal carotid arteries. There is atherosclerosis with possible hemodynamically significant stenosis at the left external carotid artery. ASSESSMENT AND PLAN: Ms. Pro is a 68-year-old right-hand dominant woman with multiple vascular risk factors admitted to [facility] on August 19, 2018, with a probable stroke. 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 The patient's laboratory data and other diagnostic studies have been reviewed and are documented above. RECOMMENDATIONS: Are as follows: 1. A CTA of the brain and neck with contrast will be ordered. 2. A MRI of the brain cannot be performed secondary to cardiac stent placement approximately 3 weeks ago. 3. Treatment with current anti-platelet and anticoagulant medications will be continued pending a discussion with the patient's dispatch specialist, Dr. Bah, or his patient account representative regarding the occurrence of a new stroke while on Xarelto, thrombocytopenia, etc. 4. Allow permissive hypertension pending the results of the CTA of the brain and neck. Continue p.r.n. clonidine. 5. The patient's goal total cholesterol less than 200 with LDL less than 70. Ms. Pro cholesterol is at goal. Continue treatment with her home medication of atorvastatin 10 mg by mouth at bedtime daily. 6. The patient's goal hemoglobin A1c is less than 7.0. Treatment with all home medications will be continued with the exception of metformin. Ms. Pro cannot take metformin for 48 hours following a CTA. 7. Speech and Physical Therapy consultations will be ordered. 8. GI prophylaxis with Protonix 40 mg by mouth daily. DVT prophylaxis with TOMÁS hose and SCDs. Defer treatment of the remaining medical comorbidities to the primary and other services following the patient. Thank you for this consultation. I will continue to follow the patient while she remains in the hospital. TIME SPENT: 70 minutes. Cookie Mac MD CP/KRIS /[id number] MTDD
[2018-08-20] MEDS: FAMOTIDINE 20 MG TAB PO SCH (21:16)
[2018-08-20] MEDS: ATORVASTATIN 10 MG TAB PO SCH (21:16)
[2018-08-20] MEDS: CLOPIDOGREL BISULFATE 75 MG TAB PO SCH (21:16)
[2018-08-20] MEDS: INSULIN GLARGINE 100 UNITS/ML VIAL SQ SCH (22:01)
--- NOTE | 2018-08-20 22:37 | NUR ---
Received bedside shift report from dayshift RN. Patient is AOx4 with no pain. The patient is sitting on the side of the bed with on distress. 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 Bed set on low with side rails up x2 and call light within reach.
[2018-08-21] VITALS (8 sets, daily range): BP systolic 118–191; BP diastolic 58–75
[2018-08-21] MEDS: SODIUM CHLORIDE 0.9% 1000ML 1,000 ML IV SCH ×2 (00:20→10:13)
--- NOTE | 2018-08-21 04:14 | NUR ---
Per daysinft RN's report, Dr. Mac want the patient's blood pressure to remain high to prevent another injury (CVA). Allow the BP to stay high for the 1st 24 hours until further instruction from Dr. Mac.
[2018-08-21 06:15] LABS: BASOPHILS # (AUTO) 0.1 (0.0-0.1); BASOPHILS % 0.9 % (0.0-1.0); EOSINOPHILS # (AUTO) 0.2 (0.0-0.4); EOSINOPHILS % 4.5 % (0.0-6.0); HEMATOCRIT 29.5 % (34.2-44.1); LYMPHOCYTES # (AUTO) 1.2 (1.0-3.2); LYMPHOCYTES % 21.8 % (18.0-39.1); MEAN CORPUSCULAR HGB CONC 30.5 g/dL (31-35); MEAN CORPUSCULAR VOLUME 75.4 fL (81-99); MONOCYTES # (AUTO) 0.5 (0.2-0.8); NEUTROPHILS # (AUTO) 3.3 (2.1-6.9); RED BLOOD COUNT 3.91 x10e6/uL (3.6-5.1); RED CELL DISTRIBUTION WIDTH 14.5 % (11.7-14.4)
[2018-08-21 06:28] LABS: PLATELET COUNT 40 x10e3/uL (140-360)
--- NOTE | 2018-08-21 06:29 | NUR ---
Received lab critical for platelet at 40, improving from 37 on the previous day.
[2018-08-21 06:44] LABS: ANION GAP 9.9 mmol/L (8-16); CREATININE, SERUM 1.02 mg/dL (0.57-1.11); MAGNESIUM 1.2 MG/DL (1.3-2.1); POTASSIUM 3.9 mmol/L (3.5-5.1)
--- NOTE | 2018-08-21 07:10 | NUR ---
RCD PT AT BED PT IS ALERT AND ORIENTED RESTING ON BED NO SIGNS OF ANY DISTRESS NOTED FAMILY AT BED SIDE IV PATENT BED LOW AND LOCKED CALL LIGHT IN REACH
[2018-08-21 07:15] LABS: RBC MORPHOLOGY COMMENT NORMAL
[2018-08-21 07:16] LABS: ANISOCYTOSIS S; HYPOCHROMASIA SLIGHT; PLATELET MORPHOLOGY COMMENT NORMAL
[2018-08-21 07:19] LABS: PLATELET ESTIMATE MODERATELY DECREASED
[2018-08-21] MEDS: INSULIN LISPRO 100 UNIT/1 ML 3ML VIAL SQ SCH ×4 (07:30→20:20)
[2018-08-21] MEDS: LOTEPREDNOL ETABONATE(OPTH) 5 ML BTL OP SCH ×2 (09:00→17:00)
[2018-08-21] MEDS: METOPROLOL SUCCINATE 25 MG TAB XL PO SCH (09:00)
[2018-08-21] MEDS: EYE OP SCH (09:00)
[2018-08-21] MEDS: PANTOPRAZOLE SOD 40 MG TABEC PO SCH (09:00)
[2018-08-21] MEDS: SIMBRINZA EYE OP SCH ×2 (09:00→17:00)
[2018-08-21] MEDS: CLOPIDOGREL BISULFATE 75 MG TAB PO SCH (09:00)
[2018-08-21] MEDS: SODIUM CHLORIDE OP SCH ×3 (09:00→20:20)
[2018-08-21] MEDS: AMLODIPINE BESYLATE 5 MG TAB PO SCH (09:00)
--- NOTE | 2018-08-21 10:35 | NUR ---
A/C TO PHARMACY PAGED TO DR BHARDWAJ AND CLARIFIED HUMULIN 10 UNITS SINCE PT IN SLIDING SCALE AND LANTUS HE SAID DC THE HUMULIN
--- NOTE | 2018-08-21 16:18 | NUR ---
NOTIFIED TO LAB BONE MARROW ON TOMORROW
--- NOTE | 2018-08-21 17:35 | NUR ---
PT WENT TO PROCEDURE IN SAFE CONDITION
--- NOTE | 2018-08-21 18:14 | Diagnostic Imaging Report ---
EXAMINATION: CT of the chest, abdomen and pelvis with contrast. TECHNIQUE: Spiral CT images of the chest, abdomen and pelvis were performed from the lung bases to the lesser trochanters after the intravenous administration of 100 cc of Isovue 370. Coronal and sagittal reformatted images were obtained. COMPARISON: None. CLINICAL HISTORY:Concern for lymphoma DISCUSSION: Chest: Bibasilar atelectasis without focal consolidation. No worrisome pulmonary nodule or mass. No mediastinal or hilar adenopathy. Dilated main pulmonary artery measuring 3.5 cm. No pericardial effusion. No pleural effusion. ABDOMEN/PELVIS: LOWER THORAX:Unremarkable. HEPATOBILIARY: No focal hepatic lesions. No intra or extrahepatic biliary ductal dilation. Cholecystectomy. SPLEEN: No splenomegaly. PANCREAS: 2.5 cm cystic lesion in the tail of the pancreas with no adjacent main ductal dilatation. Overall atrophic appearance to the pancreas. ADRENALS: No adrenal nodules. KIDNEYS/URETERS: Lobular appearance to the bilateral kidneys. No hydronephrosis, mass or stone. PELVIC ORGANS/BLADDER: The bladder is normal. Uterus and ovaries are present. PERITONEUM/RETROPERITONEUM: No free air or fluid. LYMPH NODES: No intra-abdominal, retroperitoneal, pelvic or inguinal lymphadenopathy. VESSELS: The celiac trunk,superior and inferior mesenteric and bilateral renal arteries are patent. Extensive calcifications in the bilateral renal ostia. The portal, superior mesenteric and splenic veins are patent. GI TRACT: No distention or wall thickening. BONES AND SOFT TISSUE: No bony destructive lesions. Mild compression deformity of T12 and moderate compression deformity of L1. No soft tissue abnormalities. IMPRESSION: 1. No radiographic evidence of lymphoma. 2. There is a 2.5 cm cystic lesion in the tail the pancreas. This may represent a side branch IPMN, dedicated MRI may be considered for further characterization. 3. Age indeterminate, although likely chronic, raeo-im-jakljcuw compression deformities of the T12 and L1 vertebral bodies, respectfully. Signed by: Gigi Washington MD on 08/21/2018 6:11 PM
--- NOTE | 2018-08-21 18:47 | NUR ---
PT RESTING ON BED BED SIDE REPORT GIVEN TO ONCOMING NURSE
[2018-08-21] MEDS ORDERED: IOPAMIDOL 370 MG/ML 200 ML INFUS..BTL INJ ONE (19:09)
[2018-08-21] MEDS ORDERED: SODIUM CHLORIDE 0.9% 50ML 50 ML ONE (19:09)
[2018-08-21] MEDS: ATORVASTATIN 10 MG TAB PO SCH (20:20)
[2018-08-21] MEDS: FAMOTIDINE 20 MG TAB PO SCH (20:20)
[2018-08-21] MEDS: INSULIN GLARGINE 100 UNITS/ML VIAL SQ SCH (20:20)
--- NOTE | 2018-08-21 23:00 | Progress Note ---
DATE: SUBJECTIVE: The patient is here for CVA. Currently asymptomatic. No chest pain. No shortness of breath. Weakness has resolved. The patient does not have any dysarthria or speech abnormalities. The patient is currently on amlodipine, atorvastatin, clonidine, insulin, metoprolol, and pantoprazole. PHYSICAL EXAMINATION: VITAL SIGNS: Temperature is 98.8, pulse of 60, respirations of 19, blood pressure is running high at 173/70. HEENT: Normocephalic, atraumatic. Pupils are reactive to light and accommodation. The patient has a facial droop. CVS: S1 and S2 regular. ABDOMEN: Nontender, nondistended. EXTREMITIES: No clubbing, no cyanosis, no edema. IMAGING STUDIES: From yesterday in the morning, abdominal CT shows no radiographic evidence of lymphoma, 2.5 cystic lesion in the pancreatic tail, age indeterminate onoy-ef-hsyfuisc compression deformity of the T12 and L1 vertebrae. CT chest shows again no radiographic evidence of lymphoma. Head CT from yesterday showed moderate focal stenosis of the bilateral internal cerebral arteries at A2 segment and also ghgb-gt-zhusasxd right and moderate left carotid bulb calcified plaque without significant stenosis. ASSESSMENT: 1. Cerebrovascular accident. 2. The patient with thrombocytopenia. Consult with Dr. Alvarado has been done. The patient is to undergo a bone marrow biopsy tomorrow. 3. Hypertension. We will continue monitoring the patient for on the blood pressure on the higher side and also IV fluids have been started for resuscitation. 4. The patient's diabetes is well controlled. We will continue the same. Speech and physical therapy have been ordered. Gastrointestinal prophylaxis will be ordered. Deep venous thrombosis prophylaxis has been done. The patient will be continue to be monitored and course will be dependent on Dr. Alvarado's bone marrow tomorrow. 5. The patient also has a history of coronary artery disease and known history of atrial fibrillation. a. We will continue on Plavix keeping in lieu of the patient had a recent stent. b. We will continue with anticoagulation with NOAC Xarelto, may be switched to Eliquis depending on Cardiology and continue monitoring her platelet values. 6. Further recommendation per clinical course. DISPOSITION: Possible discharge again tomorrow after bone marrow biopsy. MD IMTIAZ Sevilla/MODL /[id number]
[2018-08-22] VITALS (8 sets, daily range): BP systolic 109–186; BP diastolic 57–71
--- NOTE | 2018-08-22 02:50 | NUR ---
PATIENT IS OBSERVED RESTING COMFORTABLY, EYES CLOSED, NO SIGNS OF DISTRESS SEEN IN PATIENT. PATIENTLY VERBALLY EXPRESSED THAT SHE UNDERSTOOD NPO AFTER MIDNIGHT. CALL LIGHT IS WITHIN HER REACH, WILL CONTINUE TO MONITOR.
[2018-08-22] MEDS: CLONIDINE HCL 0.1 MG TAB PO PRN ×2 (04:46→22:45)
--- NOTE | 2018-08-22 04:47 | NUR ---
PATIENT'S BLOOD PRESSURE WAS ELEVATED 171/71. GAVE THE PATIENT CLONIDINE PO PRN, WILL CONTINUE TO MONITOR BLOOD PRESSURE.
--- NOTE | 2018-08-22 05:39 | NUR ---
TELEMETRY CALLED TO REPORT PATIENT'S HEART RATE WAS AT 41, SHE THEN REPORTED SHORTLY THAT IT STEPHANE UP TO 51. SHORTLY AFTER ASSESSING THE PATIENT, THE HEART RATE WAS AT 64 BPM. WILL CONTINUE TO MONITOR THE SITUATION. Addendum: 08/22/18 at 0605 by Jori Cuevas RN OBSERVED NO DISTRESS, PATIENT STATED THAT SHE FELT FINE.
[2018-08-22] MEDS ORDERED: LIDOCAINE HCL 2% LOCAL 20 ML VIAL INJ NR (07:00)
[2018-08-22] MEDS ORDERED: LIDOCAINE HCL 2% LOCAL 20 ML VIAL INJ STA (07:17)
[2018-08-22] MEDS: INSULIN LISPRO 100 UNIT/1 ML 3ML VIAL SQ SCH ×4 (07:30→21:00)
--- NOTE | 2018-08-22 08:30 | NUR ---
BONE MARROW ASPIRATION DONE AT BED SIDE
--- NOTE | 2018-08-22 08:45 | NUR ---
PLATELET [address] TENA NO NEW ORDERS
[2018-08-22 08:50] LABS: BASOPHILS # (AUTO) 0.1 (0.0-0.1); BASOPHILS % 0.8 % (0.0-1.0); EOSINOPHILS # (AUTO) 0.2 (0.0-0.4); EOSINOPHILS % 3.4 % (0.0-6.0); HEMATOCRIT 31.4 % (34.2-44.1); HEMOGLOBIN 9.6 g/dL (12.0-16.0); LYMPHOCYTES # (AUTO) 1.2 (1.0-3.2); LYMPHOCYTES % 20.3 % (18.0-39.1); MEAN CORPUSCULAR HEMOGLOBIN 23.1 pg (28-32); MEAN CORPUSCULAR HGB CONC 30.6 g/dL (31-35); MEAN CORPUSCULAR VOLUME 75.5 fL (81-99); MONOCYTES # (AUTO) 0.5 (0.2-0.8); MONOCYTES % 7.7 % (4.4-11.3); NEUTROPHILS % 67.3 % (38.7-80.0); RED BLOOD COUNT 4.16 x10e6/uL (3.6-5.1); RED CELL DISTRIBUTION WIDTH 14.6 % (11.7-14.4)
[2018-08-22 08:55] LABS: PLATELET COUNT 44 x10e3/uL (140-360)
[2018-08-22] MEDS: SODIUM CHLORIDE OP SCH ×3 (09:00→21:00)
[2018-08-22] MEDS: AMLODIPINE BESYLATE 5 MG TAB PO SCH (09:00)
[2018-08-22] MEDS: CLOPIDOGREL BISULFATE 75 MG TAB PO SCH (09:00)
[2018-08-22] MEDS: LOTEPREDNOL ETABONATE(OPTH) 5 ML BTL OP SCH ×2 (09:00→16:56)
[2018-08-22] MEDS: METOPROLOL SUCCINATE 25 MG TAB XL PO SCH (09:00)
[2018-08-22] MEDS: PANTOPRAZOLE SOD 40 MG TABEC PO SCH (09:00)
[2018-08-22] MEDS: EYE OP SCH (09:00)
[2018-08-22] MEDS: SIMBRINZA EYE OP SCH ×2 (09:00→16:56)
--- NOTE | 2018-08-22 13:10 | NUR ---
PTS HEART RATE BETWEEN 45-50 /MT PAGED AND NOTIFIED DR BHARDWJA GOT NEW ORDERS
--- NOTE | 2018-08-22 15:25 | NUR ---
Visit made by the Spiritual Care Department Pastoral Visitor, Isatu Baca. PV provided pastoral presence, hospitality, and supportive listening. Pastoral Visitor informed pt/family of the scope of [employer] and availability. BRADLEY JURADO Outplacement Consultant Spiritual Care Department O: [phone] Pager: [phone] ([phone] number calling from)
[2018-08-22] MEDS: APIXABAN 5 MG TABLET PO SCH (16:56)
--- NOTE | 2018-08-22 18:45 | NUR ---
PT RESTING ON BED BED SIDE REPORT GIVEN TO ONCOMING NURSE
--- NOTE | 2018-08-22 20:54 | Progress Note ---
DATE: 08/22/2018 Cardiology Progress Note SUBJECTIVE: No major events overnight. Feels a little bit weak today. OBJECTIVE: VITAL SIGNS: Temperature 97.4, pulse 50, respiratory rate 16, blood pressure 140/63, and saturating 97% on room air. GENERAL: Elderly female, in no acute distress. CARDIOVASCULAR: Regular rate and rhythm. Bradycardic. No murmurs. LUNGS: Clear to auscultation bilaterally. ABDOMEN: Soft, nontender, and nondistended. INPATIENT MEDICATIONS: Reviewed. LABORATORY DATA: Reviewed. IMAGING DATA: Reviewed. ASSESSMENT AND PLAN: 1. Cerebrovascular accident. 2. Paroxysmal atrial fibrillation. 3. Coronary artery disease, status post recent PCI. 4. Hypertension. 5. Hyperlipidemia. 6. Diabetes. 7. Thrombocytopenia. RECOMMENDATIONS: Continue clopidogrel given recent stent. Monitor closely given significant thrombocytopenia and concomitant use of apixaban. Blood pressure is controlled, however, her heart rate is low, would hold metoprolol for now. Thank you for this consult. We will continue to follow. MD RAYNA Cartagena/KRIS /[id number]
[2018-08-22] MEDS: INSULIN GLARGINE 100 UNITS/ML VIAL SQ SCH (21:25)
[2018-08-22] MEDS: ATORVASTATIN 10 MG TAB PO SCH (21:25)
[2018-08-22] MEDS: FAMOTIDINE 20 MG TAB PO SCH (21:25)
--- NOTE | 2018-08-22 22:30 | Progress Note ---
DATE: SUBJECTIVE: The patient comes in with CVA. The patient is currently asymptomatic. The patient is on statins and metoprolol. The patient's telemetry did not report a bradycardic event today. OBJECTIVE: VITAL SIGNS: The patient's temperature is 97.4, pulse of 49, respirations of 18, blood pressure is 109/57, patient's pulse oximeter 100%. HEENT: Normocephalic, atraumatic. Pupils are reactive to light and accommodation. CVS: S1, S2. Bradycardic. ABDOMEN: Nontender, nondistended. EXTREMITIES: No clubbing, no cyanosis, no edema. LABORATORY VALUES: Today's white count is 5.95, hemoglobin of 9.6, hematocrit of 31.4, platelet count is 44. MEDICATIONS: The patient's medications include insulin, pantoprazole, metoprolol, amlodipine, atorvastatin, famotidine, and also the patient is on atorvastatin. MICROBIOLOGY: Urine culture negative. ASSESSMENT: 1. CVA. 2. Thrombocytopenia, status post bone marrow biopsy. 3. Hypertension. Continue with medication. 4. Bradycardia. We will continue with beta-blockade in lieu of her CAD. 5. Diabetes, controlled well with insulin sliding scale. 6. History of coronary artery disease and atrial fibrillation. Continue with Plavix and also possible switch to Eliquis if it is okay with Cardiology. Further recommendation per clinical course. PLAN: Plan is to discharge the patient home tomorrow. Follow up with bone marrow biopsy as an outpatient basis. MD IMTIAZ Sevilla/YRNL /[id number]
--- NOTE | 2018-08-23 00:05 | NUR ---
RECEIVED A CALL FROM TELEMETRY THAT THE PATIENTS HEART RATE HAD DROPPED TO 49, BUT QUICKLY RAISED TO 58. AFTER REASSESSING THE PATIENT THE HEART RATE WAS AT 66. PATIENT SHOWS NO SIGNS OF DISTRESS, WILL CONTINUE TO MONITOR.
[2018-08-23 00:42] VITALS: BP 113/59
--- NOTE | 2018-08-23 03:00 | NUR ---
UPON MAKING ROUNDS PATIENT IS RESTING COMFORTABLY WITH EYES CLOSED, SHOWS NO SIGNS OF DISTRESS. BED IS LOCKED AND LOW, CALL LIGHT WITHIN REACH WILL CONTINUE TO MONITOR.
[2018-08-23 06:30] VITALS: BP 120/60
[2018-08-23] MEDS: INSULIN LISPRO 100 UNIT/1 ML 3ML VIAL SQ SCH (07:30)
--- NOTE | 2018-08-23 07:45 | NUR ---
Patient's states "Her oncologist and neurologist want to see her before discharge" Paged and to notify of discharge. Per patient to follow up in 2 weeks. Awaiting for to call back
[2018-08-23] MEDS ORDERED: ELIQUIS PO (07:52)
[2018-08-23 08:08] VITALS: BP 155/63
[2018-08-23 08:16] VITALS: BP 155/63
--- NOTE | 2018-08-23 08:47 | Progress Note ---
DATE: SUBJECTIVE: The patient is here for CVA. The patient currently continues to have some dysarthria, some dizziness, thrombocytopenia, continues to be a problem. No symptomatic problems. The patient does have some carpal tunnel tingling, otherwise no chest pain. No shortness of breath. No nausea, vomiting, or diarrhea. No constipation or no rectal bleeding. MEDICATIONS: Amlodipine, Eliquis, atorvastatin, clonidine, insulin glargine, pantoprazole, and the patient is also on some ophthalmic solutions. OBJECTIVE: VITAL SIGNS: Temperature is 96.9, pulse 54, respirations of 18, blood pressure is 113/59, and pulse oximetry of 97%. HEENT: Normocephalic and atraumatic. Pupils are reactive to light and accommodation. CVS: S1 and S2 normal. Irregularly irregular. ABDOMEN: Nontender and nondistended. EXTREMITIES: No clubbing, no cyanosis, no edema. NEUROLOGICAL: Focal changes of Mosher's palsy and also dysarthria present. Otherwise, no focal motor or neuro changes. LABORATORY VALUES: Platelet count yesterday was 44, we will repeat today platelet count. Chemistries is normal. ASSESSMENT: 1. Cerebrovascular accident with dysarthria. Continue with Eliquis twice a day. 2. Thrombocytopenia. The patient had a bone marrow biopsy. We will continue to monitor the patient. 3. History of coronary artery disease with angioplasty. We will continue with Eliquis and also Plavix. We will need Plavix for at least 3 more months. 4. Anemia and diabetes mellitus. We will continue with insulin. Further recommendation per clinical course. The patient will need physical therapy and occupational therapy as an outpatient basis. We will continue to monitor the patient as an outpatient basis. Discharge medications includes Eliquis on discharge and statins on discharge. MD IMTIAZ Sevilla/MODL /[id number]
[2018-08-23] MEDS: APIXABAN 5 MG TABLET PO SCH (09:13)
[2018-08-23] MEDS: METOPROLOL SUCCINATE 25 MG TAB XL PO SCH (09:13)
[2018-08-23] MEDS: PANTOPRAZOLE SOD 40 MG TABEC PO SCH (09:13)
[2018-08-23] MEDS: SODIUM CHLORIDE OP SCH (09:13)
[2018-08-23] MEDS: LOTEPREDNOL ETABONATE(OPTH) 5 ML BTL OP SCH (09:13)
[2018-08-23] MEDS: SIMBRINZA EYE OP SCH (09:13)
[2018-08-23] MEDS: AMLODIPINE BESYLATE 5 MG TAB PO SCH (09:13)
[2018-08-23] MEDS: EYE OP SCH (09:13)
--- NOTE | 2018-08-23 09:57 | NUR ---
Right FA IV discontinued. No signs of infiltration noted. 2x2 gauze and tape place. Accompanied by . Taken via wheelchair to personal car. AAOX3 to time, person, place. Respirations even and unlabored. Discharge instructions, rx, and all personal belongings taken with patient.
--- NOTE | 2018-08-23 10:36 | NUR ---
CM SPOKE TO PATIENT AT BEDSIDE REGARDING IMM LETTER. IMM LETTER GIVEN WITH EXPLANATION BASED ON ANTICIPATED DISCHARGE DATE. ORIGINAL SIGNED AND PLACED IN CHART; COPY OF ORIGINAL DOCUMENT GIVEN TO PATIENT AT BEDSIDE AND PLACED IN CARE TRANSITION FOLDER. CM CONTACT INFORMATION GIVEN TO PATIENT FOR ANY NEEDS OR CONCERNS. PATIENT WITH NO FURTHER QUESTIONS.
== END 2018-08-23 09:58 | disposition home or self-care (01) | DRG 66 ==
LOC: ER 15:12 → ERHOLD 18:13 → MED/SURG2 20:14 → OBSVTOIN 08-21 17:21
PROVIDERS: ADMIT Family Medicine; ATTEND Family Medicine
DX: I63.9 Cerebral infarction, unspecified (principal); I25.10 Atherosclerotic heart disease of native coronary artery without angina pectoris; I10 Essential (primary) hypertension; G51.0 Bell's palsy; Z95.5 Presence of coronary angioplasty implant and graft; E78.5 Hyperlipidemia, unspecified; I65.23 Occlusion and stenosis of bilateral carotid arteries; I48.0 Paroxysmal atrial fibrillation; Z79.01 Long term (current) use of anticoagulants; D69.6 Thrombocytopenia, unspecified; R47.1 Dysarthria and anarthria; R26.9 Unspecified abnormalities of gait and mobility; R47.01 Aphasia
CPT/HCPCS: 36415; 70450; 70496; 70498; 71045; 71260; 74177; 80048; 80053; 80061; 81001; 82550; 82553; 82948; 83036; 83540; 83735; 84466; 84484; 85025; 85610; 85730; 87086; 93005; 93306; 93880; 96372; 99285; G0378; J1815; J2001; J7030; J7050; Q9967

== ENCOUNTER → 2018-12-08 | Outpatient (CLI) | payer MEDICARE, BC ==
[~2018-12-08] MED LIST changes: +ALTACHLORE OS; +ELIQUIS PO; +LOTEMAX5 ML OS; +SIMBRINZA OS; +[UNRECOGNIZED DRUG - OTHER] OS
--- NOTE | 2018-12-12 09:29 | Diagnostic Imaging Report ---
#[id number] - USBRELIMRT ULTRASOUND OF THE RIGHT BREAST : 12/08/2018 Comparison is made to exam dated: 12/08/2018 mammogram - [facility]. Real-time ultrasound was performed on the right breast. There is a 3 cm oval mass with a circumscribed margin in the right breast at 10 o'clock anterior depth. This oval mass is homogenously hyperechoic except for a central anechoic region. This correlates as palpated and with mammography findings. IMPRESSION: PROBABLY BENIGN - FOLLOW-UP RECOMMENDED The 3 cm oval mass in the right breast is consistent with a hematoma or less likely hamartoma and is probably benign. A follow-up in 6 months is recommended. KAYLYN SWARTZ M.D. ct/:12/08/2018 15:40:47 Cellar Worker: Tim Osborne RDTX, [facility] letter sent: Followup Recommended Ultrasound BI-RADS: 3 Probably benign
--- NOTE | 2018-12-12 09:29 | Diagnostic Imaging Report ---
#[id number] - MGDXBIL #BILATERAL DIGITAL DIAGNOSTIC MAMMOGRAM WITH CAD: 12/08/2018 Comparison is made to exams dated: 08/13/2010 mammogram - [facility] and 09/10/2008 mammogram - [facility]. Current study contains 9 films. The tissue of both breasts is heterogeneously dense. This may lower the sensitivity of mammography. Current study was also evaluated with a Computer Aided Detection (CAD) system. Benign appearing calcifications are noted bilaterally. There is a 3 cm oval fat containing mass with a circumscribed margin in the right breast at 10 o'clock anterior depth. This is seen in additional views. This correlates as palpated and with ultrasound findings. No other significant masses, calcifications, or other findings are seen in either breast. IMPRESSION: PROBABLY BENIGN See the report for ultrasound performed the same day for additional details. The 3 cm oval fat containing mass in the right breast is consistent with a hematoma or less likely a hamartoma and is probably benign. The patient is on three anticoagulants and reports overlying skin bruising previously. A follow-up mammogram and an ultrasound in 6 months is recommended. The patient has been or will be notified of the results. KAYLYN SWARTZ M.D. ct/:12/08/2018 15:38:09 Associate Professor Of Education: Layla LEONARD)(Zora), [facility] letter sent: Followup Recommended Mammogram BI-RADS: 3 Probably benign
== END ==
LOC: MAMMO 13:02
PROVIDERS: ATTEND Family Medicine
DX: N63.11 Unspecified lump in the right breast, upper outer quadrant (principal)
CPT/HCPCS: 77066

== ENCOUNTER → 2019-06-06 | Outpatient (CLI) | payer MEDICARE, BC ==
[~2019-06-06] MED LIST changes: +DIATRIZOATE MEGL/DIATRIZOA SOD 30 ML BTL PO ONE
--- NOTE | 2019-06-06 16:04 | Diagnostic Imaging Report ---
CT of the abdomen and pelvis, without contrast. History: Abdominal pain. Comparison: 08/21/2018. Technique: Multidetector CT scanning of the abdomen and pelvis was performed from the level of the lung bases to the inferior pubic rami after the administration of oral contrast material only. Coronal and sagittal multiplanar reformations were obtained. RADIATION DOSE: Total DLP: 772.09 mGy*cm Dose modulation, iterative reconstruction, and/or weight based adjustment of the mA/kV was utilized to reduce the radiation dose to as low as reasonably achievable. FINDINGS: The visualized lungs demonstrate areas of subsegmental atelectasis. Atherosclerotic calcifications and suspected stent noted within the coronary arteries. Partially visualized loop recorder device noted in left anterior chest wall. The liver is normal in size and attenuation on this noncontrast enhanced examination. The gallbladder is surgically absent. There is no biliary ductal dilatation. The stomach, spleen, and bilateral adrenal glands demonstrate an unremarkable noncontrast appearance. There is a stable 2.5 cm cystic lesion identified within the pancreatic tail, unchanged in size from the prior examination. No pancreatic ductal dilatation is appreciated. The kidneys are normal in size and location with areas of cortical scarring. There is no evidence for nephrolithiasis or hydronephrosis. Vascular calcifications are noted on the right. The ureters are normal course and caliber. The partially distended urinary bladder demonstrates no significant abnormalities. The uterus and adnexa are grossly unremarkable. The abdominal aorta is normal course and caliber with atherosclerotic calcifications within its course and branch vessels. The IVC is normal in caliber. The visualized loops of small large bowel demonstrate no evidence of obstruction or inflammation. There is no ascites or intraperitoneal free air. No abnormally enlarged lymph nodes are identified within the abdomen or pelvis. Small fat-containing bilateral hernias noted. There are stable compression deformities of the T12 and L1 vertebral body. The osseous structures demonstrate degenerative changes without evidence for acute fracture or destructive process. IMPRESSION: No acute abdominopelvic process identified. Stable 2.5 cm cystic lesion identified within the tail the pancreas, better evaluated on the prior contrast enhanced examination. Status post cholecystectomy. Additional stable findings as above. Signed by: Dr. Jung Dominguez MD on 06/06/2019 4:01 PM
== END ==
LOC: CT 14:05
PROVIDERS: ATTEND Internal Medicine Medical Oncology
DX: R10.9 Unspecified abdominal pain (principal); K86.9 Disease of pancreas, unspecified
CPT/HCPCS: 74176

== ENCOUNTER → 2019-06-12 | Outpatient (CLI) | payer MEDICARE, BC ==
[~2019-06-12] MED LIST changes: -DIATRIZOATE MEGL/DIATRIZOA SOD 30 ML BTL PO ONE
--- NOTE | 2019-06-13 09:52 | Diagnostic Imaging Report ---
#[id number] - MGDXBIL #BILATERAL DIGITAL DIAGNOSTIC MAMMOGRAM WITH CAD: 06/12/2019 Comparison is made to exams dated: 12/08/2018 mammogram and 08/13/2010 mammogram - [facility]. The tissue of both breasts is heterogeneously dense. This may lower the sensitivity of mammography. Current study was also evaluated with a Computer Aided Detection (CAD) system. There are benign calcifications in both breasts. There also are benign lymph nodes in both breasts. No significant masses, calcifications, or other findings are seen in either breast. The previously seen fat containing mass in the right breast, likely a hamartoma, is no longer as apparent. There has been no significant interval change. IMPRESSION: BENIGN The previously seen fat containing mass in the right breast, likely a hamartoma, is no longer as apparent. There is no mammographic evidence of malignancy. Return to annual mammogram screening schedule is recommended. The patient will be notified by letter of the results. CALEB RAMOS M.D. kw/:06/12/2019 16:43:31 Quality Engineer Medical Device: Layla LOZANO(Gabriel)(Zora), [facility] letter sent: Compared to Prior B9 Mammogram BI-RADS: 2 Benign
== END ==
LOC: MAMMO 13:04
PROVIDERS: ATTEND Family Medicine
DX: R92.1 Mammographic calcification found on diagnostic imaging of breast (principal)
CPT/HCPCS: 77066

== ENCOUNTER → 2020-07-02 | Outpatient (CLI) | payer MEDICARE, BC | LOC: MAMMO 12:27 | PROVIDERS: ATTEND Family Medicine | DX: Z12.31 Encounter for screening mammogram for malignant neoplasm of breast (principal) | CPT/HCPCS: 77067 ==

== ENCOUNTER → 2021-07-14 | Outpatient (CLI) | payer MEDICARE, BC | LOC: MAMMO 11:40 | PROVIDERS: ATTEND Family Medicine | DX: Z12.31 Encounter for screening mammogram for malignant neoplasm of breast (principal) | CPT/HCPCS: 77067 ==

== ENCOUNTER → 2022-08-30 | Outpatient (CLI) | payer MEDICARE, BC | LOC: MAMMO 10:29 | PROVIDERS: ATTEND Family Medicine | DX: Z12.31 Encounter for screening mammogram for malignant neoplasm of breast (principal) | CPT/HCPCS: 77067 ==

== ENCOUNTER 2023-01-28 14:48 | Emergency (ER) | payer MEDICARE, BC ==
[~2023-01-28] VITALS: Ht 177.8 cm; Wt 104.3 kg
[2023-01-28 16:02] LABS: BASOPHILS # (AUTO) 0.1 (0.0-0.1); BASOPHILS % 0.8 % (0.0-1.0); EOSINOPHILS # (AUTO) 0.2 (0.0-0.4); EOSINOPHILS % 2.5 % (0.0-6.0); HEMATOCRIT 40.8 % (34.2-44.1); HEMOGLOBIN 13.7 g/dL (12.0-16.0); LYMPHOCYTES % 12.6 % (18.0-39.1); MEAN CORPUSCULAR HEMOGLOBIN 28.9 pg (28-32); MEAN CORPUSCULAR HGB CONC 33.6 g/dL (31-35); MEAN CORPUSCULAR VOLUME 86.1 fL (81-99); MONOCYTES # (AUTO) 0.6 (0.2-0.8); MONOCYTES % 8.1 % (4.4-11.3); NEUTROPHILS # (AUTO) 5.9 (2.1-6.9); NEUTROPHILS % 75.4 % (38.7-80.0); RED BLOOD COUNT 4.74 x10e6/uL (3.6-5.1); RED CELL DISTRIBUTION WIDTH 13.1 % (11.7-14.4); WHITE BLOOD COUNT 7.87 x10e3/uL (4.8-10.8)
[2023-01-28 16:12] LABS: PLATELET COUNT 41 x10e3/uL (140-360)
[2023-01-28 16:14] LABS: INR 0.97; PARTIAL THROMBOPLASTIN TIME 30.9 seconds (23.8-35.5); PROTHROMBIN TIME 13.5 seconds (11.9-14.5)
[2023-01-28 16:21] LABS: ANION GAP 15.6 mmol/L (8-16); BLOOD UREA NITROGEN 34 mg/dL (7-26); BUN/CREATININE RATIO 22 (6-25); CALCIUM 9.9 mg/dL (8.4-10.2); CARBON DIOXIDE 23 mmol/L (22-29); CHLORIDE 107 mmol/L (98-107); CREATININE, SERUM 1.53 mg/dL (0.57-1.11); GLUCOSE 121 mg/dL (74-118); POTASSIUM 4.6 mmol/L (3.5-5.1); SODIUM 141 mmol/L (136-145)
[2023-01-28] MEDS ORDERED: IOPAMIDOL 370 MG/ML 100 ML INFUS..BTL INJ ONE (16:40)
[2023-01-28] MEDS ORDERED: SODIUM CHLORIDE 0.9% 100 ML ONE (16:40)
[2023-01-28] MEDS ORDERED: LACTATED RINGER'S 1,000 ML ONE (16:41)
[2023-01-28] MEDS: LACTATED RINGER'S 1,000 ML INJ SCH ×2 (16:54→18:45)
[2023-01-28] MEDS ORDERED: METFORMIN HCL500 MG PO (17:57)
[2023-01-28] MEDS ORDERED: ULTRAM 50MG50 MG PO (17:57)
[2023-01-28] MEDS ORDERED: AMOX TR-K CLV1 EAC2 PO (17:57)
[2023-01-28 19:00] VITALS: O2SAT 99
== END 2023-01-28 19:20 | disposition other institution (70) ==
LOC: ER 14:57
DX: H34.9 Unspecified retinal vascular occlusion (principal); I63.9 Cerebral infarction, unspecified; I10 Essential (primary) hypertension; E11.65 Type 2 diabetes mellitus with hyperglycemia; I48.91 Unspecified atrial fibrillation; B19.20 Unspecified viral hepatitis C without hepatic coma; M54.9 Dorsalgia, unspecified; G89.29 Other chronic pain; Z20.822 Contact with and (suspected) exposure to COVID-19; R94.31 Abnormal electrocardiogram [ECG] [EKG]
CPT/HCPCS: 36415; 70450; 70496; 70498; 80048; 85025; 85610; 85730; 93005; 99284; J7050; J7121; Q9967; U0002

== ENCOUNTER → 2023-02-17 | Outpatient (REF) | payer MEDICARE, BC ==
[~2023-02-17] MED LIST changes: +AMOX TR-K CLV1 EAC2 PO; +IOPAMIDOL 370 MG/ML 100 ML INFUS..BTL INJ ONE; +METFORMIN HCL500 MG PO; +SODIUM CHLORIDE 0.9% 100 ML ONE; +SODIUM CHLORIDE 0.9% 500ML 500 ML ONE; +ULTRAM 50MG50 MG PO
[2023-02-17 12:06] LABS: CREATININE, SERUM 1.33 mg/dL (0.57-1.11)
== END ==
LOC: CT 11:17
PROVIDERS: ATTEND Internal Medicine Interventional Cardiology
DX: I20.89 Other forms of angina pectoris (principal); I48.0 Paroxysmal atrial fibrillation; I65.23 Occlusion and stenosis of bilateral carotid arteries; I10 Essential (primary) hypertension; E78.2 Mixed hyperlipidemia
CPT/HCPCS: 36415; 70498; 82565; 84520; 96360; J7040; J7050; Q9967